=== PATIENT | female | born 1945 | race Caucasian/White ===

== ENCOUNTER 2019-12-07 08:54 | Outpatient (CLI) | payer MEDICARE, SELFPAY ==
--- NOTE | ~2019-12-07 | XR_ITS ---
EXAMINATION: XR abdomen/kub 1V EXAM DATE: 12/07/2019 09:22 INDICATION: Right flank pain. Large B-cell lymphoma. TECHNIQUE: Frontal projection(s) of the abdomen for interpretation. Comparison is made to prior exami nation from 11/07/2014. FINDINGS: There is expected amount of colonic stool and gas. No small bowel dilation, nonobstructiv e bowel gas pattern. There are no suspicious calcifications identified. There is no organomegaly suspected. Sizable lumbar endplate osteophytes. There are cholecystectomy clips. IMPRESSION: Unremarkable abdomen x-ray exam. Reviewed, dictated and finalized at location A. NG [facility]PHOLSTERER
== END 2019-12-07 08:55 | disposition home or self-care (01) ==
PROVIDERS: PCP Internal Medicine
DX: C83.39 Diffuse large B-cell lymphoma, extranodal and solid organ sites (principal)
CPT/HCPCS: 74018

== ENCOUNTER 2020-08-14 13:43 | Emergency (ER) | payer MEDICARE, SELFPAY ==
[2020-08-14 13:52] VITALS: BP 172/74; PULSE 67; RESP 18; TEMP 37.2; O2SAT 98
--- NOTE | 2020-08-14 13:59 | ED.EAR ---
HPI - Ear Problem General Chief complaint: Ear Stated complaint: ear clogged Source: patient and RN notes reviewed Limitations: no limitations History of Present Illness HPI Narrative: The patient, on several meds, presents with right ear discomfort. Patient states she has 1 to 2-day worsening of several week long history of intermittent ear discomfort that is positional. 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 No fever, discharge, URI?sinusitis, loss of taste/smell, sore throat; patient advised BP is elevated and reports compliance with medications Related Data Home Medications Medication Instructions Recorded Confirmed aspirin [Adult Low Dose Aspirin] 81 mg PO EVERY OTHER DAY 08/14/20 08/14/20 carvedilol 25 mg PO BID 08/14/20 08/14/20 levothyroxine [Euthyrox] 112 mcg PO DAILY 08/14/20 08/14/20 lisinopril 40 mg PO DAILY 08/14/20 08/14/20 triamterene-hydrochlorothiazid 1 tablet PO DAILY 08/14/20 08/14/20 Allergies Allergy/AdvReac Type Severity Reaction Status Date / Time latex Allergy Mild Unknown Verified 08/14/20 14:15 Review of Systems Review of Systems: Narrative: General/Constitutional: No weight loss,fever Eyes: N0: Redness,discharge Ears/Nose/Throat: No: Epistaxis,ear discharge Respiratory: Denies: Hemoptysis Gastrointestinal: No Vomiting, Bleeding-rectal Skin: No Lumps, eruption Neurologic: No Focal Weakness,Sz Hematologic: Denies: Petechiae/Purpura Psychiatric: No: Suicida ideationl All Other Systems: Reviewed and Negative PMFSH Comments At time of signature, agree with nursing past medical, surgical, social and family history. There is no relevant family history pertinent to the presenting complaint Exam Narrative: Exam Narrative: General Appearance: Well appearing, Well nourished, No distress EYE: PERRLA , EOMI Ears: Right EAC with inspissated cerumen external ear normal, Auditory canal normal Nose: Normal nose, Nares clear Mouth/Throat: Normal appearing, Normal lips Neck: Supple, No adenopathy Respiratory: Airway patent, No respiratory distress Skin: Warm, Dry Neurological: A&O x3, Normal affect Course Vital Signs Vital signs: Vital Signs Temperature 98.9 F 08/14/20 13:52 Pulse Rate 67 08/14/20 13:52 Respiratory Rate 18 08/14/20 13:52 Blood Pressure 172/74 H 08/14/20 13:52 Pulse Oximetry 98 08/14/20 13:52 Temperature 98.9 F 08/14/20 13:52 Pulse Rate 67 08/14/20 13:52 Respiratory Rate 18 08/14/20 13:52 Blood Pressure 172/74 H 08/14/20 13:52 Pulse Oximetry 98 08/14/20 13:52 Procedures Ear Wax Removal Right Ear: Cerumenolytic Used: other (peroxide) Results: Re-examined: some cerumen remains TM Examination: other (TM not seen ) Ear Canal Exam: atraumatic Patient Tolerated Procedure: well Complications: no problems (no curette used) Technique: ear canal irrigated Medical Decision Making Vital Signs Vital Signs: Vital Signs Temperature 98.9 F 08/14/20 13:52 Pulse Rate 67 08/14/20 13:52 Respiratory Rate 18 08/14/20 13:52 Blood Pressure 172/74 H 08/14/20 13:52 Pulse Oximetry 98 08/14/20 13:52 Temperature 98.9 F 08/14/20 13:52 Pulse Rate 67 08/14/20 13:52 Respiratory Rate 18 08/14/20 13:52 Blood Pressure 172/74 H 08/14/20 13:52 Pulse Oximetry 98 08/14/20 13:52 Discharge Plan Discharge Clinical Impression: Ceruminosis Qualifiers: Laterality: right Qualified Code(s): H61.21 - Impacted cerumen, right ear Patient Disposition: Home, Self-Care Condition: Improved Instructions: Antibiotic Form Prescriptions: No Action carvedilol 25 mg tablet 25 mg PO BID RF: 0 Adult Low Dose Aspirin 81 mg Tablet 81 mg PO EVERY OTHER DAY RF: 0 triamterene-hydrochlorothiazid 75-50 mg tablet 1 tablet PO DAILY RF: 0 lisinopril 40 mg tablet 40 mg PO DAILY RF: 0 levothyroxine [Eu
== END 2020-08-14 14:49 | disposition home or self-care (01) ==
PROVIDERS: Emergency Provider Emergency Medicine; PCP Internal Medicine
DX: H61.21 Impacted cerumen, right ear (principal); Z79.82 Long term (current) use of aspirin; I10 Essential (primary) hypertension; E03.9 Hypothyroidism, unspecified
CPT/HCPCS: 69209; 99212; G0463

== ENCOUNTER 2021-08-06 09:22 | Emergency (ER) | payer MEDICARE, SELFPAY ==
[2021-08-06 09:34] VITALS: BP 126/69; PULSE 92; RESP 16; TEMP 36.1; O2SAT 97
--- NOTE | 2021-08-06 10:50 | ED.EAR ---
HPI - Ear Problem General Chief complaint: Ear Stated complaint: Ear Pain Source: patient and RN notes reviewed Mode of arrival: ambulatory Limitations: no limitations History of Present Illness HPI Narrative: Patient states she has ear wax build up in both ears. She states her right is completed clogged and she cannot hear and states left ear has decreased hearing starting two days ago. She has used Debrox OTC drops in right ear. She states she has taken hot showers to help with ears. She denies any pain. She states nothing has helped at home. MD Complaint: decreased hearing Related Data Home Medications Medication Instructions Recorded Confirmed aspirin [Adult Low Dose Aspirin] 81 mg PO EVERY OTHER DAY 08/14/20 08/06/21 carvedilol 25 mg PO BID 08/14/20 08/06/21 levothyroxine [Euthyrox] 112 mcg PO DAILY 08/14/20 08/06/21 lisinopril 40 mg PO DAILY 08/14/20 08/06/21 triamterene-hydrochlorothiazid 1 tablet PO DAILY 08/14/20 08/06/21 atorvastatin [Lipitor] 10 mg PO DAILY 08/06/21 08/06/21 Allergies Allergy/AdvReac Type Severity Reaction Status Date / Time latex Allergy Mild Unknown Verified 08/06/21 10:16 Review of Systems Review of Systems: CONSTITUTIONAL: Denies body aches, fever, chills, or sweats. EYES: Denies visual changes, redness, or discharge. ENT: Denies rhinorrhea, congestion, sore throat, or otalgia, + for fullness and decreased hearing CARDIOVASCULAR: Denies chest pain, palpitations, or edema. RESPIRATORY: Denies cough or dyspnea. GASTROINTESTINAL: Denies abdominal pain, nausea, vomiting, or diarrhea. GENITOURINARY: Denies dysuria or hematuria. SKIN: Denies rash, itching, or wounds. MUSCULOSKELETAL: Denies back pain, joint pain, or myalgia. NEUROLOGIC: Denies headache, numbness, tingling, or weakness. PSYCH: Denies depression or anxiety. PMFSH Comments At time of signature, I have reviewed and agree with nursing past medical, surgical, social and family history unless otherwise noted. Please see nursing chart for further information. There is no relevant family history pertinent to the presenting complaint. Exam Narrative: GENERAL: Well-appearing, well-nourished, and in no acute distress. HEAD: Normocephalic, atraumatic. EYES: EOMI. No redness or drainage. Conjunctivae normal. ENT: Mucous membranes pink and moist. Nares clear. No rhinorrhea. Bilateral ear canals cerumen impacted with brown, thick wax. TMs normal bilaterally. Throat normal. Uvula midline. NECK: Normal AROM. Supple. No lymphadenopathy. CHEST: No respiratory distress. Clear to auscultation. HEART: Regular rate and rhythm. No murmur appreciated. Normal peripheral pulses. MUSCULOSKELETAL: No bony tenderness. EXTREMITIES: Normal range of motion. No edema. SKIN: Warm, dry, no rash. Capillary refill normal. Normal skin turgor. NEURO: No focal deficits. Alert and oriented x3. Gait steady. PSYCH: Normal affect. No signs of depression or anxiety. Course Vital Signs Vital signs: Vital Signs Temperature 96.9 F L 08/06/21 09:34 Pulse Rate 92 08/06/21 09:34 Respiratory Rate 16 08/06/21 09:34 Blood Pressure 126/69 08/06/21 09:34 Pulse Oximetry 97 08/06/21 09:34 Temperature 96.9 F L 08/06/21 09:34 Pulse Rate 92 08/06/21 09:34 Respiratory Rate 16 08/06/21 09:34 Blood Pressure 126/69 08/06/21 09:34 Pulse Oximetry 97 08/06/21 09:34 Reviewed. Pt has been instructed to follow up with her PCP regarding her elevated blood pressure today. Procedures Ear Wax Removal Both Ears: Ear Wax Removal Date: 08/06/21 Ear Wax Removal Time: 10:50 Cerumenolytic Used: other (hydrogen peroxide) Results: Re-examined: some cerumen remains TM Examination: TM(s) intact, normal appearance Ear Canal Exam: atraumatic Patient Tolerated Procedure: well Complications: no problems Technique: ear canal irrigated and ear canal curetted Medical Decision Making Di
== END 2021-08-06 10:57 | disposition home or self-care (01) ==
PROVIDERS: Emergency Provider Nurse Practitioner
DX: H61.23 Impacted cerumen, bilateral (principal); E78.00 Pure hypercholesterolemia, unspecified; I10 Essential (primary) hypertension; E03.9 Hypothyroidism, unspecified
CPT/HCPCS: 69210; 99212; G0463

== ENCOUNTER 2022-11-28 11:00 | Emergency (ER) | payer MEDICARE, SELFPAY ==
[2022-11-28 11:08] VITALS: BP 161/73; PULSE 67; RESP 16; TEMP 36.4; O2SAT 99
[2022-11-28 11:10] VITALS: BP 161/73; PULSE 67; RESP 16; TEMP 36.4; O2SAT 99
--- NOTE | 2022-11-28 11:34 | ED.EAR ---
HPI - Ear Problem General Chief complaint: Ear Stated complaint: Ears Irritation Time Seen by Provider: 11/28/22 11:25 Source: patient and RN notes reviewed Mode of arrival: ambulatory Limitations: no limitations History of Present Illness HPI Narrative: 77-year-old female presents concern for ear wax impaction. She reports she tried to get in to her ear nose throat doctor but could not get an appointment until February. She denies pain, reports it feels clogged, pops and has decreased hearing MD Complaint: decreased hearing Related Data Home Medications Medication Instructions Recorded Confirmed aspirin 81 mg tablet 81 mg PO EVERY OTHER DAY 08/14/20 11/28/22 carvedilol 25 mg tablet 25 mg PO BID 08/14/20 11/28/22 levothyroxine 112 mcg tablet 112 mcg PO DAILY 08/14/20 11/28/22 (Euthyrox) lisinopril 40 mg tablet 40 mg PO DAILY 08/14/20 11/28/22 triamterene 75 1 tablet PO DAILY 08/14/20 11/28/22 mg-hydrochlorothiazide 50 mg tablet atorvastatin 10 mg tablet (Lipitor) 10 mg PO DAILY 08/06/21 11/28/22 Allergies Allergy/AdvReac Type Severity Reaction Status Date / Time latex Allergy Mild Unknown Verified 11/28/22 11:09 Review of Systems Review of Systems: CONSTITUTIONAL: Denies malaise, chills, sweats, or fever. EYES: Denies visual changes, redness, or discharge. ENT: Denies rhinorrhea, congestion, sinus pain, and sore throat. Reports bilateral ear wax impaction, decreased hearing on the left CARDIOVASCULAR: Denies chest pain, palpitations, or edema. RESPIRATORY: Denies cough. Denies dyspnea. GASTROINTESTINAL: Denies abdominal pain, nausea, vomiting, diarrhea SKIN: Denies rash or itching. MUSCULOSKELETAL: Denies myalgia. NEUROLOGIC: Denies headache. All systems reviewed & are unremarkable except as noted in HPI and below PMFSH Comments At time of signature, agree with nursing past medical, surgical, social and family history. There is no relevant family history pertinent to the presenting complaint Exam Narrative: GENERAL: Well-appearing, well-nourished, and in no acute distress. HEAD: Normocephalic EYES: PERRLA, conjunctivae clear ENT: Nares clear. Mucous membranes moist. TM not visible due to excess cerumen bilaterally; no tragal tenderness. Oropharynx not erythematous without lesions. Tonsils not enlarged and without exudate, no drooling, no hoarseness, no trismus, uvula midline. NECK: Supple. No lymphadenopathy CHEST: Clear to auscultation, breath sounds equal. No wheezing, rhonchi, rales, or stridor. No respiratory distress, speaks in full sentences. HEART: Regular rate and rhythm. No murmur heard. SKIN: Warm, dry, no rash. NEURO: Alert and oriented x3. PSYCH: Normal mood and affect Course Course Emergency Course: Patient is aware of diagnosis, understands and agrees to treatment plan. Anticipatory guidance given. Patient agrees to follow-up as directed and is aware of reasons to seek care at the emergency department. Portions of this record may have been created with voice recognition software Level of Care: Express Care Visit Vital Signs Vital signs: Vital Signs Temperature 97.5 F L 11/28/22 11:08 Pulse Rate 67 11/28/22 11:08 Respiratory Rate 16 11/28/22 11:08 Blood Pressure 161/73 H 11/28/22 11:08 Pulse Oximetry 99 11/28/22 11:08 Oxygen Delivery Room Air 11/28/22 11:08 Temperature 97.5 F L 11/28/22 11:10 Pulse Rate 67 11/28/22 11:10 Respiratory Rate 16 11/28/22 11:10 Blood Pressure 161/73 H 11/28/22 11:10 Pulse Oximetry 99 11/28/22 11:10 Oxygen Delivery Room Air 11/28/22 11:10 Reviewed. Procedures Ear Wax Removal Both Ears: Ear Wax Removal Date: 11/28/22 Ear Wax Removal Time: 11:35 Cerumenolytic Used: other (Hydrogen peroxide) Results: Re-examined: cerumen removed completely TM Examination: TM(s) intact, normal appearance Ear Canal Exam: atraumatic Patient Tolerated Procedure: well Complications: no pr
== END 2022-11-28 12:02 | disposition home or self-care (01) ==
PROVIDERS: Emergency Provider Nurse Practitioner
DX: H61.23 Impacted cerumen, bilateral (principal); E78.00 Pure hypercholesterolemia, unspecified; I10 Essential (primary) hypertension; E03.9 Hypothyroidism, unspecified
CPT/HCPCS: 69210; 99212; A9270; G0463

== ENCOUNTER 2023-12-27 10:11 | Emergency (ER) | payer MEDICARE, SELFPAY ==
[2023-12-27 10:42] VITALS: PULSE 69; RESP 16; TEMP 36.6; O2SAT 99
[2023-12-27 10:45] VITALS: BP 228/110
--- NOTE | 2023-12-27 10:57 | ED.FEMALEGU ---
HPI - Female Genitourinary General Chief complaint: Urogenital-Female Stated complaint: UTI Time Seen by Provider: 12/27/23 10:57 Source: patient Mode of arrival: ambulatory Limitations: no limitations History of Present Illness HPI Narrative: 78 yo F presents with c/o urinary frequency, urgency, dysruria for 2 days. Afebrile. No ABD or back pain. Pt's BP high on arrival to [facility]. denies chest pain and shortness of breath. No headache. did not take BP meds prior to arrival. Usually takes around 11am daily. has not seen BP for 1 yr. has appt in april. all systems reviewed and negative except as noted above. Related Data Home Medications Medication Instructions Recorded Confirmed aspirin 81 mg tablet 81 mg PO EVERY OTHER DAY 08/14/20 12/27/23 carvedilol 25 mg tablet 25 mg PO BID 08/14/20 12/27/23 levothyroxine 112 mcg tablet 112 mcg PO DAILY 08/14/20 12/27/23 (Euthyrox) lisinopril 40 mg tablet 40 mg PO DAILY 08/14/20 12/27/23 triamterene 75 1 tablet PO DAILY 08/14/20 12/27/23 mg-hydrochlorothiazide 50 mg tablet atorvastatin 10 mg tablet (Lipitor) 10 mg PO DAILY 08/06/21 12/27/23 Allergies Allergy/AdvReac Type Severity Reaction Status Date / Time latex Allergy Severe Blister Verified 12/27/23 11:10 Review of Systems Review of Systems: CONSTITUTIONAL: Denies fever, chills, or sweats. EYES: Denies visual changes, redness, or discharge. ENT: Denies rhinorrhea, congestion, sore throat, or otalgia. CARDIOVASCULAR: Denies chest pain, palpitations, or edema. RESPIRATORY: Denies cough or dyspnea. GASTROINTESTINAL: Denies abdominal pain, nausea, vomiting, or diarrhea. GENITOURINARY: reports dysuria, frequency, urgency. Denies hematuria. SKIN: Denies rash or itching. MUSCULOSKELETAL: Denies back pain, joint pain, or myalgia. NEUROLOGIC: Denies headache, numbness, or weakness. PSYCHIATRIC: Denies anxiety or depression. All other systems reviewed are negative, except as documented in HPI. PMFSH Comments At time of signature, agree with nursing past medical, surgical, social and family history. There is no relevant family history pertinent to the presenting complaint. Exam Narrative: GENERAL: This is a well-nourished, well-developed patient, in no apparent distress. HEAD: normocephalic, atraumatic. EYES: PERRL. Sclera clear/white. Vision is grossly intact. EARS: External ears normal NOSE: External nose normal NECK: Neck supple, non-tender without lymphadenopathy, masses or thyromegaly. CARDIOVASCULAR: Regular rate and rhythm without murmurs, gallops, or rubs. RESPIRATORY: Clear to auscultation. Breath sounds equal bilaterally. No wheezes, rales, or rhonchi. SKIN: warm, Dry, intact with no suspicious lesions or rash, good texture and turgor. NEURO: awake, alert, and oriented to person, place and time. There were no obvious focal neurologic abnormalities. EXTREMITIES: No joint tenderness, effusion, or edema noted. BACK: Nontender without deformity. Course Course Level of Care: Express Care Visit Vital Signs Vital signs: Vital Signs Temperature 36.6 C 12/27/23 10:42 Pulse Rate 69 12/27/23 10:42 Respiratory Rate 16 12/27/23 10:42 Pulse Oximetry 99 12/27/23 10:42 Oxygen Delivery Room Air 12/27/23 10:42 Temperature 36.6 C 12/27/23 10:42 Pulse Rate 69 12/27/23 10:42 Respiratory Rate 16 12/27/23 10:42 Pulse Oximetry 99 12/27/23 10:42 Oxygen Delivery Room Air 12/27/23 10:42 BP on arrival 228/110. asymptomatic BP at discharge 184/90. asymptomatic MDM - Female Genitourinary MDM Narrative Medical decision making narrative: asymptomatic hypertension. pt given 0.1 clonidine that decreased BP. pt will go home and take her medications. has home BP machine that she will use later to recheck BP. Patient is aware of diagnosis, understands and agrees to treatment plan. Anticipatory guidance given. Patient agrees to follow-up as directed and is aware of lance
[2023-12-27] MEDS: cloNIDine HCL 0.1 MG TABLET PO (11:17)
[2023-12-27 12:00] VITALS: BP 184/90
== END 2023-12-27 12:10 | disposition home or self-care (01) ==
PROVIDERS: Emergency Provider Nurse Practitioner Family
DX: N39.0 Urinary tract infection, site not specified (principal); B96.89 Other specified bacterial agents as the cause of diseases classified elsewhere; I10 Essential (primary) hypertension; E78.00 Pure hypercholesterolemia, unspecified; E03.9 Hypothyroidism, unspecified; Z85.72 Personal history of non-Hodgkin lymphomas
CPT/HCPCS: 81003; 87077; 87086; 87186; 99213; A9270; G0463